=== PATIENT | male | born 1995 | race Two or more races ===

== ENCOUNTER 2017-03-09 08:42 | Emergency (ER) | payer SELFPAY ==
[~2017-03-09] VITALS: Ht 175.3 cm; Wt 127.0 kg
[2017-03-09] MEDS ORDERED: IV NORMAL SALINE 1000ML BAG 1,000 ML IV SCH (09:57)
[2017-03-09] MEDS ORDERED: ONDANSETRON PF 4 MG/2 ML VIAL. IV ONE (10:00)
[2017-03-09 10:10] LABS: BASO # 0.1 x10^3/uL (0.0-0.2); BASO % 1 % (0-3); EOS % 13 % (0-3); HEMOGLOBIN 15.8 g/dL (13.0-17.5); LYMPH # 2.1 x10^3/uL (1.0-4.8); LYMPH % 26 % (24-48); MEAN CORPUSCULAR HEMOGLOBIN 26 pg (25-35); MEAN CORPUSCULAR HGB CONC 34 g/dL (31-37); MEAN CORPUSCULAR VOLUME 77 fL (79-100); MONO % 6 % (0-9); NEUT % 54 % (31-73); PLATELET COUNT 262 x10^3/uL (140-400); RED BLOOD COUNT 5.97 x10^6/uL (4.30-5.70); RED CELL DISTRIBUTION WIDTH 13.9 % (11.5-14.5); WHITE BLOOD COUNT 8.2 x10^3/uL (4.0-11.0)
[2017-03-09 10:44] LABS: ALBUMIN/GLOBULIN RATIO 0.9 (1.0-1.7); GFR 94.3; POTASSIUM 3.9 mmol/L (3.5-5.1); TOTAL BILIRUBIN 0.5 mg/dL (0.2-1.0); TOTAL PROTEIN 8.3 g/dL (6.4-8.2)
[2017-03-09 10:57] LABS: INR 1.1 (0.8-1.1); PROTHROMBIN TIME PATIENT 13.7 SEC (11.7-14.0)
[2017-03-09 11:11] LABS: BILIRUBIN,URINE NEGATIVE (NEG); GLUCOSE,URINE NEGATIVE (NEG); NITRITE,URINE NEGATIVE (NEG); PROTEIN,URINE NEGATIVE (NEG-TRACE); UROBILINOGEN,URINE 0.2 mg/dL (0.2 mg/dL)
[2017-03-09 11:23] LABS: BACTERIA,URINE FEW /HPF (0-FEW); RBC,URINE 0 /HPF (0-2); SQUAMOUS EPITHELIAL CELL,UR FEW /LPF; WBC,URINE OCC /HPF (0-4)
[2017-03-09 12:07] VITALS: BP 125/55
--- NOTE | 2017-03-09 13:10 | PHYS DOC ---
Past Medical History Past Medical History: No Pertinent History Additional Past Medical Histor: pneumonia Past Surgical History: No Surgical History Alcohol Use: None Drug Use: None Adult General Chief Complaint Chief Complaint: HEMATEMESIS/VOMITING BLOOD [place] [employer] [facility] HPI 22-year-old male with history of morbid obesity from [facility] now presents to the emergency department complaining of vomiting once and suspecting there might be a small amount of blood in his vomitus. She does not have a history of abdominal problems or chronic gastritis. He states he does not drink alcohol at all. Patient is on no medicines. He gets some nausea this morning and retched and vomited one time results of which were as described. No devaughn blood patient suspected trace of blood present. He denies black or bloody stool. He has no history of coagulopathy and does not take any anticoagulants area patient has no dizziness near syncope or syncope. Denies abdominal pain. He is currently completely asymptomatic with no nausea at all. Patient has never been told he has any medical problems Review of Systems Review of Systems Constitutional: Denies fever or chills [] Eyes: Denies change in visual acuity, redness, or eye pain [] HENT: Denies nasal congestion or sore throat [] Respiratory: Denies cough or shortness of breath [] Cardiovascular: No additional information not addressed in HPI [] GI: Denies abdominal pain, nausea, vomiting, bloody stools or diarrhea [] : Denies dysuria or hematuria [] Musculoskeletal: Denies back pain or joint pain [] Integument: Denies rash or skin lesions [] Neurologic: Denies headache, focal weakness or sensory changes [] Endocrine: Denies polyuria or polydipsia [] Current Medications Current Medications Current Medications Medications (Trade) Dose Ordered Sig/Charla Start Time Stop Time Status Last Admin Dose Admin Ondansetron HCl (Zofran) 4 mg 1X ONCE 03/09/17 10:00 03/09/17 10:01 DC 03/09/17 10:12 4 MG Sodium Chloride 1,000 ml @ 999 mls/hr Q1H1M 03/09/17 09:57 03/09/17 10:57 DC 03/09/17 10:12 999 MLS/HR Allergies Allergies Allergies Coded Allergies Type Severity Reaction Last Updated Verified No Known Drug Allergies 12/13/15 No Physical Exam Physical Exam Well-appearing morbidly obese crenation male in no acute distress. No pallor of conjunctiva. Nontender abdomen specifically no epigastric tenderness. Clear lungs regular rhythm no tachycardia completely benign extended abdominal exam with no CVA tenderness. Normal extremities Constitutional: Well developed, well nourished, no acute distress, non-toxic appearance. [] HENT: Normocephalic, atraumatic, bilateral external ears normal, oropharynx moist, no oral exudates, nose normal. [] Eyes: PERRLA, EOMI, conjunctiva normal, no discharge. [] Neck: Normal range of motion, no tenderness, supple, no stridor. [] Cardiovascular:Heart rate regular rhythm, no murmur [] Lungs & Thorax: Bilateral breath sounds clear to auscultation [] Abdomen: Bowel sounds normal, soft, no tenderness, no masses, no pulsatile masses. [] Skin: Warm, dry, no erythema, no rash. [] Back: No tenderness, no CVA tenderness. [] Extremities: No tenderness, no cyanosis, no clubbing, ROM intact, no edema. [] Neurologic: Alert and oriented X 3, normal motor function, normal sensory function, no focal deficits noted. [] Psychologic: Affect normal, judgement normal, mood normal. [] Current Patient Data Vital Signs Vital Signs Date Time Temp Pulse Resp B/P (MAP) Pulse Ox O2 Delivery O2 Flow Rate FiO2 03/09/17 12:07 70 16 125/55 (78) 98 Room Air 03/09/17 09:12 98.4 98.4 Lab Values Laboratory Tests Test 03/09/17 09:55 03/09/17 10:29 03/09/17 11:00 White Blood Count 8.2 x10^3/uL (4.0-11.0) Red Blood Count 5.97 x10^6/uL (4.30-5.70) H Hemoglobin 15.8 g/dL (13.0-17.5) Hematocrit 46.0 % (39.0-53.0) Mean Corpuscular Volume 77 fL (79-100) L Mean Corpuscular Hemoglobin 26 pg (25-35) Mean Corpuscular Hemoglobin Concent 34 g/dL (31-37) Red Cell Distribution Width 13.9 % (11.5-14.5) Platelet Count 262 x10^3/uL (140-400) Neutrophils (%) (Auto) 54 % (31-73) Lymphocytes (%) (Auto) 26 % (24-48) Monocytes (%) (Auto) 6 % (0-9) Eosinophils (%) (Auto) 13 % (0-3) H Basophils (%) (Auto) 1 % (0-3) Neutrophils # (Auto) 4.4 x10^3uL (1.8-7.7) Lymphocytes # (Auto) 2.1 x10^3/uL (1.0-4.8) Monocytes # (Auto) 0.5 x10^3/uL (0.0-1.1) Eosinophils # (Auto) 1.1 x10^3/uL (0.0-0.7) H Basophils # (Auto) 0.1 x10^3/uL (0.0-0.2) Sodium Level 139 mmol/L (136-145) Potassium Level 3.9 mmol/L (3.5-5.1) Chloride Level 102 mmol/L (98-107) Carbon Dioxide Level 27 mmol/L (21-32) Anion Gap 10 (6-14) Blood Urea Nitrogen 12 mg/dL (8-26) Creatinine 1.0 mg/dL (0.7-1.3) Estimated GFR (Cockcroft-Gault) 94.3 BUN/Creatinine Ratio 12 (6-20) Glucose Level 95 mg/dL (70-99) Calcium Level 9.0 mg/dL (8.5-10.1) Total Bilirubin 0.5 mg/dL (0.2-1.0) Aspartate Amino Transferase (AST) 29 U/L (15-37) Alanine Aminotransferase (ALT) 41 U/L (16-63) Alkaline Phosphatase 126 U/L (46-116) H Total Protein 8.3 g/dL (6.4-8.2) H Albumin 4.0 g/dL (3.4-5.0) Albumin/Globulin Ratio 0.9 (1.0-1.7) L Lipase 99 U/L (73-393) Prothrombin Time 13.7 SEC (11.7-14.0) Prothrombin Time INR 1.1 (0.8-1.1) PTT 29 SEC (24-38) Urine Color Yellow Urine Clarity Clear Urine pH 6.0 Urine Specific [place] >=1.030 Urine Protein Negative mg/dL (NEG-TRACE) Urine Glucose (UA) Negative mg/dL (NEG) Urine Ketones (Stick) Negative mg/dL (NEG) Urine Blood Negative (NEG) Urine Nitrite Negative (NEG) Urine Bilirubin Negative (NEG) Urine Urobilinogen Dipstick 0.2 mg/dL (0.2 mg/dL) Urine Leukocyte Esterase Negative (NEG) Urine RBC 0 /HPF (0-2) Urine WBC Occ /HPF (0-4) Urine Squamous Epithelial Cells Few /LPF Urine Bacteria Few /HPF (0-FEW) Urine Mucus Mod /LPF Laboratory Tests 03/09/17 09:55 Laboratory Tests 03/09/17 09:55 EKG EKG [] Radiology/Procedures Radiology/Procedures [] Course & Med Decision Making Course & Med Decision Making Pertinent Labs and Imaging studies reviewed. (See chart for details) Patient status post single episode of vomiting. He now feels well. Question of small amount of blood in vomitus however patient has no history of coagulopathy or anticoagulation. He is refusing a rectal exam with nurse present. Explained to patient this was necessary for his workup as supportive information to suggest or deny that he may have gastritis or maybe evolving peptic ulcer disease. Despite excellent oxygenation patient continues to refuse rectal exam. Hemoglobin unremarkable, vital signs stable. Workup benign. Patient continues to refuse rectal exam and he is aware his workup is incomplete without it. He will sign out AGAINST MEDICAL ADVICE and follow-up with his doctor for reevaluation and further workup and treatment as needed. [] Dragon Disclaimer Dragon Disclaimer This electronic medical record was generated, in whole or in part, using a voice recognition dictation system. Departure Departure Impression: Primary Impression: Emesis Disposition: 07 AGAINST MEDICAL ADVICE Condition: STABLE Referrals: NO PCP (PCP) Additional Instructions: All up with your doctor as soon as possible for reevaluation and further workup as needed HERNANDEZ KELLY MD Mar 09, 2017 13:10
== END 2017-03-09 14:00 | disposition left against medical advice (07) ==
LOC: ER 08:42
DX: R11.2 Nausea with vomiting, unspecified (principal); E66.01 Morbid (severe) obesity due to excess calories; Z68.41 Body mass index [BMI] 40.0-44.9, adult; Z87.01 Personal history of pneumonia (recurrent); Z53.21 Procedure and treatment not carried out due to patient leaving prior to being seen by health care provider
CPT/HCPCS: 36415; 80053; 81001; 83690; 85025; 85610; 85730; 96361; 96374; 99285; J2405; J7030

== ENCOUNTER 2018-06-17 22:13 | Emergency (ER) | payer SELFPAY ==
[~2018-06-17] VITALS: Ht 182.9 cm; Wt 127.0 kg
[2018-06-17 23:03] LABS: BASO # 0.1 x10^3/uL (0.0-0.2); BASO % 1 % (0-3); EOS # 0.3 x10^3/uL (0.0-0.7); EOS % 2 % (0-3); HEMATOCRIT 51.2 % (39.0-53.0); HEMOGLOBIN 17.4 g/dL (13.0-17.5); LYMPH # 2.4 x10^3/uL (1.0-4.8); LYMPH % 17 % (24-48); MEAN CORPUSCULAR HEMOGLOBIN 27 pg (25-35); MEAN CORPUSCULAR HGB CONC 34 g/dL (31-37); MEAN CORPUSCULAR VOLUME 79 fL (79-100); MONO # 0.8 x10^3/uL (0.0-1.1); MONO % 6 % (0-9); NEUT # 10.4 x10^3uL (1.8-7.7); NEUT % 74 % (31-73); PLATELET COUNT 325 x10^3/uL (140-400); RED BLOOD COUNT 6.47 x10^6/uL (4.30-5.70); RED CELL DISTRIBUTION WIDTH 13.8 % (11.5-14.5)
[2018-06-17 23:08] LABS: CALCIUM 9.9 mg/dL (8.5-10.1); GFR 93.4; POTASSIUM 3.8 mmol/L (3.5-5.1)
[2018-06-17 23:14] LABS: ALBUMIN 4.1 g/dL (3.4-5.0); ALBUMIN/GLOBULIN RATIO 0.8 (1.0-1.7); TOTAL BILIRUBIN 0.5 mg/dL (0.2-1.0); TOTAL PROTEIN 9.4 g/dL (6.4-8.2)
[2018-06-17 23:24] LABS: CREATINE KINASE 202 U/L (39-308)
[2018-06-17] MEDS ORDERED: IV NORMAL SALINE 1000ML BAG 1,000 ML IV ONE (23:30)
--- NOTE | 2018-06-17 23:37 | PHYS DOC ---
Past Medical History Past Medical History: No Pertinent History Additional Past Medical Histor: pneumonia Past Surgical History: No Surgical History Alcohol Use: None Drug Use: None Adult General Chief Complaint Chief Complaint: CHEST PAIN HPI HPI 23-year-old male presents to ER via POV for complaints of sudden onset of left- sided chest pain radiating into his back 2 hours prior to arrival. Patient's uncle at bedside is translating as patient is preferring not to use translation phone and he speaks primarily Chukese. Patient reports he was resting when pain started and pain has been constant. Pt denies increased pain w/movement or breathing. Pt denies fever, SOA, cough, abd pain, N/V, or palpitations. He denies swelling in extremities. He denies any recent travel or illness. Pt's brother denies any family hx of CAD/MIs. Pt took 800mg Ibuprofen FREEZER ASSISTANT to ER. He denies smoking, etoh, or illicit drug use. Review of Systems Review of Systems Constitutional: Denies fever or chills [] Eyes: Denies change in visual acuity, redness, or eye pain [] HENT: Denies nasal congestion or sore throat [] Respiratory: Denies cough or shortness of breath [] Cardiovascular: Reports lt side CP radiating into lt side upper back GI: Denies abdominal pain, nausea, vomiting, bloody stools or diarrhea [] : Denies dysuria or hematuria [] Musculoskeletal: Denies neck pain or joint pain [] Integument: Denies rash, swelling or skin lesions [] Neurologic: Denies headache, focal weakness or sensory changes. Denies dizziness /lightheadedness All other systems were reviewed and found to be within normal limits, except as documented in this note. Current Medications Current Medications Current Medications Medications (Trade) Dose Ordered Sig/Charla Start Time Stop Time Status Last Admin Dose Admin Ketorolac Tromethamine (Toradol 15mg Vial) 15 mg 1X ONCE 06/17/18 23:45 06/17/18 23:45 DC Morphine Sulfate (Morphine Sulfate) 4 mg 1X ONCE 06/17/18 23:55 06/17/18 23:56 DC 06/18/18 00:03 4 MG Sodium Chloride 1,000 ml @ 1,000 mls/hr 1X ONCE 06/17/18 23:30 06/18/18 00:29 DC 06/17/18 23:30 1,000 MLS/HR Allergies Allergies Allergies Coded Allergies Type Severity Reaction Last Updated Verified No Known Drug Allergies 12/13/15 No Physical Exam Physical Exam Constitutional: Well developed, well nourished, mild distress on initial exam- flushes facial skin tone w/clammy skin, non-toxic appearance. [] HENT: Normocephalic, atraumatic, bilateral ears normal, oropharynx moist, no oral exudates, nose normal. [] Eyes: PERRLA, conjunctiva normal, no discharge. [] Neck: Normal range of motion, no tenderness, supple, no stridor. [] Cardiovascular: Tachycardic heart rate regular rhythm, no murmur [] Lungs & Thorax: Bilateral breath sounds clear to auscultation. Resp. equal/ nonlabored Abdomen: Bowel sounds normal, soft/obese, no tenderness/rigidity, no masses, no pulsatile masses. [] Skin: Warm, clammy, no erythema, no rash. [] Back: No tenderness, no CVA tenderness. [] Extremities: No tenderness, no cyanosis, no clubbing, ROM intact, no edema. Bilat. radial 2+ equal. Dorsal pedis/pedal pulse equal bilat. 2+. Calf size symmetric bilat. with no calf tenderness Neurologic: Alert and oriented X 3, normal motor function, normal sensory function, no focal deficits noted. [] Psychologic: Affect normal, judgement normal, mood normal. [] Current Patient Data Vital Signs Vital Signs Date Time Temp Pulse Resp B/P (MAP) Pulse Ox O2 Delivery O2 Flow Rate FiO2 06/18/18 01:31 73 18 143/77 (99) 95 Room Air 06/17/18 22:15 98.6 98.6 Lab Values Laboratory Tests Test 06/17/18 22:50 White Blood Count 14.0 x10^3/uL (4.0-11.0) H Red Blood Count 6.47 x10^6/uL (4.30-5.70) H Hemoglobin 17.4 g/dL (13.0-17.5) Hematocrit 51.2 % (39.0-53.0) Mean Corpuscular Volume 79 fL (79-100) Mean Corpuscular Hemoglobin 27 pg (25-35) Mean Corpuscular Hemoglobin Concent 34 g/dL (31-37) Red Cell Distribution Width 13.8 % (11.5-14.5) Platelet Count 325 x10^3/uL (140-400) Neutrophils (%) (Auto) 74 % (31-73) H Lymphocytes (%) (Auto) 17 % (24-48) L Monocytes (%) (Auto) 6 % (0-9) Eosinophils (%) (Auto) 2 % (0-3) Basophils (%) (Auto) 1 % (0-3) Neutrophils # (Auto) 10.4 x10^3uL (1.8-7.7) H Lymphocytes # (Auto) 2.4 x10^3/uL (1.0-4.8) Monocytes # (Auto) 0.8 x10^3/uL (0.0-1.1) Eosinophils # (Auto) 0.3 x10^3/uL (0.0-0.7) Basophils # (Auto) 0.1 x10^3/uL (0.0-0.2) D-Dimer (Cheryl) < 0.27 ug/mlFEU Sodium Level 137 mmol/L (136-145) Potassium Level 3.8 mmol/L (3.5-5.1) Chloride Level 100 mmol/L (98-107) Carbon Dioxide Level 25 mmol/L (21-32) Anion Gap 12 (6-14) Blood Urea Nitrogen 13 mg/dL (8-26) Creatinine 1.0 mg/dL (0.7-1.3) Estimated GFR (Cockcroft-Gault) 93.4 BUN/Creatinine Ratio 13 (6-20) Glucose Level 95 mg/dL (70-99) Calcium Level 9.9 mg/dL (8.5-10.1) Total Bilirubin 0.5 mg/dL (0.2-1.0) Aspartate Amino Transferase (AST) 23 U/L (15-37) Alanine Aminotransferase (ALT) 48 U/L (16-63) Alkaline Phosphatase 115 U/L (46-116) Creatine Kinase 202 U/L (39-308) Creatine Kinase MB (Mass) 1.4 ng/mL (0.0-3.6) Creatine Kinase MB Relative Index 0.7 % (0-4) Troponin I Quantitative < 0.017 ng/mL (0.000-0.055) [id number]-Type Natriuretic Peptide < 5 pg/mL (0-124) Total Protein 9.4 g/dL (6.4-8.2) H Albumin 4.1 g/dL (3.4-5.0) Albumin/Globulin Ratio 0.8 (1.0-1.7) L Lipase 90 U/L (73-393) Laboratory Tests 06/17/18 22:50 Laboratory Tests 06/17/18 22:50 EKG EKG EKG obtained 06/17/18 at [address] Trotter Sinus rhythm Rate 100 No STEMI Radiology/Procedures Radiology/Procedures CXR: no acute findings Course & Med Decision Making Course & Med Decision Making Pertinent Labs and Imaging studies reviewed. (See chart for details) 2325: On re-eval pt is in no visible distress and skin is not clammy as he was at time of arrival. He appears less anxious then at time of initial exam with equal/nonlabored resp. His BP 131/63 HR 93 RR 18 O2 sat 99% on RA. Test results were discussed with pt's brother translating again to pt. Will give pt pain meds /IV fld bolus and continue to monitor. DDimer 0.27; EKG with no STEMI/acute ST elevation and troponin <0.017; WBCs 14.0 no bands. Pt continues to report pain to be same in left side chest denying any SOA, abd pain, or nausea. He reports pain does continue to radiate into lt side upper back. Pt's case was discussed with Dr. Trotter who viewed chest xray- no obvious acute findings. 0005: On re-eval. following IV Morphine pt reports no change in lt side CP. Discussed plans to recheck troponin 3 hrs after initial labs to further r/o ACS - pt and family agreeable with this plan. 0050: Re-eval and pt reports CP has subsided. He is resting on ER cart- in no distress/nontoxic in appearance. VS signs stable with BP 160/76 HR 88 RR 18 O2 sat 98% RA- he remains on color television console monitor with no ischemic changes. He denies any sxs at this time. Family at bedside. Discussed pt's case with Dr. Trotter who will assume pt's care with 3 hr troponin pending. 02:15: Repeat trop/EKG negative for acute changes. Patient discharged to home. Advised to return to the ER for any new or worsening symptoms. Dragon Disclaimer Dragon Disclaimer This electronic medical record was generated, in whole or in part, using a voice recognition dictation system. Departure Departure Disposition: 01 HOME, SELF-CARE Condition: GOOD Referrals: NO PCP (PCP) BETHANIE YANG APRN Jun 17, 2018 23:37 CHESTER TROTTER DO Jun 18, 2018 02:17
[2018-06-17] MEDS ORDERED: KETOROLAC 15 MG/ML VIAL. IV ONE (23:45)
[2018-06-17] MEDS ORDERED: MORPHINE SULFATE 4 MG/ML VIAL. IV ONE (23:55)
[2018-06-18 01:31] VITALS: BP 143/77
--- NOTE | 2018-06-18 06:35 | EKG ---
[facility] [address] [place] [address] Test Date: 2018-06-17 Test Time: 22:40:55 Pat Name: SAHIL PRITCHETT Department: Room: Gender: M Hydrological Technical Officer: : 1995 Requested By: BETHANIE YANG Order Number: [id number] Reading MD: Daniel Multani Measurements Intervals [place] Rate: 100 P: 28 W[place]: 164 QRS: 48 QRSD: 90 T: 15 QT: 334 QTc: 434 Interpretive Statements SINUS RHYTHM NO SPECIFIC ECG ABNORMALITIES Electronically Signed On 06-18-2018 9:16:55 NUTRITION COUNSELOR by Daniel Multani
--- NOTE | 2018-06-18 06:43 | EKG ---
[facility] [address] [place] [address] Test Date: 2018-06-18 Test Time: 02:07:38 Pat Name: SAHIL PRITCHETT Department: Room: Gender: M Curb Attendant: : 1995 Requested By: CHESTER CHENG Order Number: [id number] Reading MD: Daniel Multani Measurements Intervals [place] Rate: 78 P: 0 MS: 176 QRS: 33 QRSD: 100 T: 4 QT: 362 QTc: 416 Interpretive Statements SINUS RHYTHM NON SPECIFIC ST-T ABNORMALITY (ELEVATION) Electronically Signed On 06-18-2018 9:17:32 LPN MEDICAL ASSISTANT by Daniel Multani
--- NOTE | 2018-06-18 07:49 | RAD ---
Chest, 2 views, 06/17/2018: HISTORY: Chest pain Comparison is made to a study from 10/14/2015. The heart size and pulmonary vascularity are normal. No pulmonary infiltrate is seen. There is no evidence of pleural fluid. IMPRESSION: No acute cardiopulmonary abnormality is detected. Electronically signed by: Calvin Mcghee MD (06/18/2018 7:46 AM) [facility]
== END 2018-06-18 02:25 | disposition home or self-care (01) ==
LOC: ER 22:13
DX: R07.89 Other chest pain (principal); M54.6 Pain in thoracic spine; R00.0 Tachycardia, unspecified
CPT/HCPCS: 36415; 71046; 80053; 82553; 83690; 83880; 84484; 85025; 85379; 93005; 96374; 99284; J2270; J7030

== ENCOUNTER 2018-06-18 20:21 | Observation (INO) | payer SELFPAY ==
[~2018-06-18] VITALS: Ht 172.7 cm; Wt 124.3 kg
--- NOTE | 2018-06-18 20:33 | PHYS DOC ---
Past Medical History Past Medical History: No Pertinent History Additional Past Medical Histor: pneumonia Past Surgical History: No Surgical History Alcohol Use: None Drug Use: Marijuana Adult General Chief Complaint Chief Complaint: CHEST PAIN-NON CARDIAC NATURE HPI HPI 23-year-old male turns to ER via POV with complaints of left side chest pain radiating into his left upper back. Patient was evaluated in the ER by this provider last night and he presented with same symptoms. His uncle who is translating is at bedside states pain per pt has worsened . He reports patient took ibuprofen at 5 PM with no relief in symptoms. Review of Systems Review of Systems Constitutional: Denies fever or chills [] Eyes: Denies change in visual acuity, redness, or eye pain [] HENT: Denies nasal congestion or sore throat [] Respiratory: Denies cough or shortness of breath [] Cardiovascular: Reports lt side CP into lt side upper back- pain is worse with deep breath. Some increased pain with palp. lt upper chest GI: Denies abdominal pain, nausea, vomiting, bloody stools or diarrhea [] : Denies dysuria or hematuria [] Musculoskeletal: Denies neck pain or joint pain [] Integument: Denies rash, swelling or skin lesions [] Neurologic: Denies headache, focal weakness or sensory changes [] All other systems were reviewed and found to be within normal limits, except as documented in this note. Current Medications Current Medications Current Medications Medications (Trade) Dose Ordered Sig/Charla Start Time Stop Time Status Last Admin Dose Admin Info (CONTRAST GIVEN -- Rx MONITORING) 1 each PRN DAILY PRN 06/18/18 21:00 06/20/18 20:59 Iohexol (Omnipaque 300 Mg/ml) 75 ml 1X ONCE 06/18/18 20:45 06/18/18 20:46 DC 06/18/18 20:45 75 ML Morphine Sulfate (Morphine Sulfate) 4 mg 1X ONCE 06/18/18 20:45 06/18/18 20:46 DC 06/18/18 21:34 4 MG Sodium Chloride 1,000 ml @ 1,000 mls/hr 1X ONCE 06/18/18 20:45 06/18/18 21:44 DC 06/18/18 21:34 1,000 MLS/HR Allergies Allergies Allergies Coded Allergies Type Severity Reaction Last Updated Verified No Known Drug Allergies 12/13/15 No Physical Exam Physical Exam Constitutional: Well developed, well nourished, no acute distress, non-toxic appearance. [] HENT: Normocephalic, atraumatic, oropharynx moist, no oral exudates, nose normal. [] Eyes: PERRLA, EOMI, conjunctiva normal, no discharge. [] Neck: Normal range of motion, no tenderness, supple, no stridor. [] Cardiovascular: Heart rate regular rhythm, no murmur [] Lungs & Thorax: Bilateral breath sounds clear to auscultation [] Abdomen: Bowel sounds normal, soft, no tenderness, no masses, no pulsatile masses. [] Skin: Warm, dry, no erythema, no rash. [] Back: No tenderness, no CVA tenderness. [] Extremities: No tenderness, no cyanosis, no clubbing, ROM intact, no edema. [] Neurologic: Alert and oriented X 3, normal motor function, normal sensory function, no focal deficits noted. [] Psychologic: Affect normal, judgement normal, mood normal. [] Current Patient Data Vital Signs Vital Signs Date Time Temp Pulse Resp B/P (MAP) Pulse Ox O2 Delivery O2 Flow Rate FiO2 06/18/18 21:38 79 14 155/84 (107) 98 Room Air 06/18/18 20:22 98.4 98.4 Lab Values Laboratory Tests Test 06/18/18 21:35 White Blood Count 11.4 x10^3/uL (4.0-11.0) H Red Blood Count 5.94 x10^6/uL (4.30-5.70) H Hemoglobin 15.6 g/dL (13.0-17.5) Hematocrit 47.5 % (39.0-53.0) Mean Corpuscular Volume 80 fL (79-100) Mean Corpuscular Hemoglobin 26 pg (25-35) Mean Corpuscular Hemoglobin Concent 33 g/dL (31-37) Red Cell Distribution Width 14.1 % (11.5-14.5) Platelet Count 294 x10^3/uL (140-400) Neutrophils (%) (Auto) 65 % (31-73) Lymphocytes (%) (Auto) 23 % (24-48) L Monocytes (%) (Auto) 6 % (0-9) Eosinophils (%) (Auto) 5 % (0-3) H Basophils (%) (Auto) 1 % (0-3) Neutrophils # (Auto) 7.4 x10^3uL (1.8-7.7) Lymphocytes # (Auto) 2.6 x10^3/uL (1.0-4.8) Monocytes # (Auto) 0.7 x10^3/uL (0.0-1.1) Eosinophils # (Auto) 0.6 x10^3/uL (0.0-0.7) Basophils # (Auto) 0.1 x10^3/uL (0.0-0.2) Sodium Level 139 mmol/L (136-145) Potassium Level 3.7 mmol/L (3.5-5.1) Chloride Level 101 mmol/L (98-107) Carbon Dioxide Level 27 mmol/L (21-32) Anion Gap 11 (6-14) Blood Urea Nitrogen 13 mg/dL (8-26) Creatinine 0.9 mg/dL (0.7-1.3) Estimated GFR (Cockcroft-Gault) 105.5 BUN/Creatinine Ratio 14 (6-20) Glucose Level 81 mg/dL (70-99) Calcium Level 9.3 mg/dL (8.5-10.1) Total Bilirubin 0.6 mg/dL (0.2-1.0) Aspartate Amino Transferase (AST) 26 U/L (15-37) Alanine Aminotransferase (ALT) 47 U/L (16-63) Alkaline Phosphatase 101 U/L (46-116) Troponin I Quantitative < 0.017 ng/mL (0.000-0.055) Total Protein 8.5 g/dL (6.4-8.2) H Albumin 3.7 g/dL (3.4-5.0) Albumin/Globulin Ratio 0.8 (1.0-1.7) L Laboratory Tests 06/18/18 21:35 Laboratory Tests 06/18/18 21:35 EKG EKG EKG obtained 06/18/[address] Trotter Sinus rhythm Nonspecific ST- T wave abnorm. Rate 86 No STEMI Similar to comparison with EKGs from 06/17/18 Radiology/Procedures Radiology/Procedures PROCEDURE: CT CHEST W/CONTRAST CT chest with contrast dated 06/18/2018. No comparison available. Clinical data indication: Left-sided chest pain. TECHNIQUE: Contiguous axial imaging of the chest performed following the intravenous administration of 75 cc Omnipaque 300. One or more of the following individualized dose reduction techniques were utilized for this examination: 1. Automated exposure control 2. Adjustment of the mA and/or kV according to patient size 3. Use of iterative reconstruction technique. FINDINGS: Heart size within normal limits. No pericardial effusion. No mediastinal, hilar or axillary lymphadenopathy. There is some increased density in the anterior superior mediastinum that likely represents residual thymic tissue. Central airways are patent. Lungs are clear. No consolidation or pleural effusion. No pneumothorax. Images of upper abdomen show diffuse low-density of the liver, compatible with fatty infiltration. No apparent mass. Biliary tree normal in caliber. Bone windows show no acute findings. IMPRESSION: 1. No acute abnormality of chest. Clear lungs. 2. Mild fatty infiltration of the liver. Electronically signed by: Leif Mendoza MD (06/18/2018 9:10 PM) [facility] DICTATED and SIGNED BY: LEIF MENDOZA MD DATE: 06/18/182106 Course & Med Decision Making Course & Med Decision Making Pertinent Labs and Imaging studies reviewed. (See chart for details) 2300: There was delay with lab in getting pt's lab results- EKG similar to those obtained during last night's ER visit and troponin again was <0.017. Chest CT with no acute findings. Results were discussed with pt and his uncle- they have concerns of ongoing pain and are wanting admit to hosp. as discussion was had with outpt care with PCP. At this time pt is unemployed and has no PCP. Discussed providing pain med and Rx for steroids- Uncle and pt both are wanting him admitted as pt feels pain is worse and he has had no improvement with Ibuprofen or Morphine. During this discussion pt is in no visible distress/ nontoxic in appearance. Further discussed labs from today's ER visit and last night's along with xray/CT results with no acute findings. Both are not wanting pt to be discharge and admitted for further monitoring w/Uncle reporting pt's pain was worse today. Will admit to hospitalist and have cardiology see pt tomorrow. At time of admit pt was in no distress with equal/nonlabored resp. Pt's case and plan of care was discussed with Dr. Trotter. Chad Disclaimer Chad Disclaimer This electronic medical record was generated, in whole or in part, using a voice recognition dictation system. Departure Departure Impression: Primary Impression: Chest pain Disposition: ADMITTED INPATIENT Admitting Physician: Xie. Cates Condition: STABLE Referrals: NO PCP (PCP) BETHANIE YANG APRN Jun 18, 2018 20:33
[2018-06-18] MEDS ORDERED: IOHEXOL 300 MG/ML 100ML VIAL. IV ONE (20:45)
[2018-06-18] MEDS ORDERED: MORPHINE SULFATE 4 MG/ML VIAL. IV ONE (20:45)
[2018-06-18] MEDS ORDERED: IV NORMAL SALINE 1000ML BAG 1,000 ML IV ONE (20:45)
[2018-06-18] MEDS ORDERED: CONTRAST GIVEN. MC PRN (21:00)
--- NOTE | 2018-06-18 21:14 | RAD ---
CT chest with contrast dated 06/18/2018. No comparison available. Clinical data indication: Left-sided chest pain. TECHNIQUE: Contiguous axial imaging of the chest performed following the intravenous administration of 75 cc Omnipaque 300. One or more of the following individualized dose reduction techniques were utilized for this examination: 1. Automated exposure control 2. Adjustment of the mA and/or kV according to patient size 3. Use of iterative reconstruction technique. FINDINGS: Heart size within normal limits. No pericardial effusion. No mediastinal, hilar or axillary lymphadenopathy. There is some increased density in the anterior superior mediastinum that likely represents residual thymic tissue. Central airways are patent. Lungs are clear. No consolidation or pleural effusion. No pneumothorax. Images of upper abdomen show diffuse low-density of the liver, compatible with fatty infiltration. No apparent mass. Biliary tree normal in caliber. Bone windows show no acute findings. IMPRESSION: 1. No acute abnormality of chest. Clear lungs. 2. Mild fatty infiltration of the liver. Electronically signed by: Leif Mendoza MD (06/18/2018 9:10 PM) [facility]
[2018-06-18 22:33] LABS: BASO # 0.1 x10^3/uL (0.0-0.2); BASO % 1 % (0-3); EOS # 0.6 x10^3/uL (0.0-0.7); EOS % 5 % (0-3); HEMATOCRIT 47.5 % (39.0-53.0); HEMOGLOBIN 15.6 g/dL (13.0-17.5); LYMPH # 2.6 x10^3/uL (1.0-4.8); LYMPH % 23 % (24-48); MEAN CORPUSCULAR HEMOGLOBIN 26 pg (25-35); MEAN CORPUSCULAR HGB CONC 33 g/dL (31-37); MEAN CORPUSCULAR VOLUME 80 fL (79-100); MONO # 0.7 x10^3/uL (0.0-1.1); MONO % 6 % (0-9); NEUT # 7.4 x10^3uL (1.8-7.7); NEUT % 65 % (31-73); PLATELET COUNT 294 x10^3/uL (140-400); RED BLOOD COUNT 5.94 x10^6/uL (4.30-5.70); RED CELL DISTRIBUTION WIDTH 14.1 % (11.5-14.5); WHITE BLOOD COUNT 11.4 x10^3/uL (4.0-11.0)
[2018-06-18 22:43] LABS: CALCIUM 9.3 mg/dL (8.5-10.1); CREATININE 0.9 mg/dL (0.7-1.3); GFR 105.5; POTASSIUM 3.7 mmol/L (3.5-5.1)
[2018-06-18 22:49] LABS: ALBUMIN 3.7 g/dL (3.4-5.0); ALBUMIN/GLOBULIN RATIO 0.8 (1.0-1.7); TOTAL BILIRUBIN 0.6 mg/dL (0.2-1.0); TOTAL PROTEIN 8.5 g/dL (6.4-8.2)
[2018-06-19] MEDS ORDERED: MORPHINE SULFATE 4 MG/ML VIAL. IV PRN (00:30)
[2018-06-19] MEDS ORDERED: ACETAMINOPHEN 325 MG TABLET. PO PRN (00:30)
[2018-06-19 00:45] VITALS: BP 137/77
[2018-06-19 01:00] VITALS: BP 134/79
[2018-06-19 01:15] VITALS: BP 155/81
[2018-06-19 01:30] VITALS: BP 154/71
[2018-06-19 03:00] VITALS: BP 137/57
--- NOTE | 2018-06-19 03:36 | EKG ---
[facility] [address] [place] [address] Test Date: 2018-06-18 Test Time: 20:29:28 Pat Name: SAHIL PRITCHETT Department: Room: 103 1 Gender: M Marketing And Development Coordinator: : 1995 Requested By: BETHANIE YANG Order Number: [id number] Reading MD: Sinan Field MD Measurements Intervals [place] Rate: 85 P: 0 NV: 166 QRS: 47 QRSD: 96 T: 5 QT: 348 QTc: 419 Interpretive Statements SINUS RHYTHM Electronically Signed On 06-19-2018 14:39:12 TATTOO IDENTIFIER by Sinan Field MD
--- NOTE | 2018-06-19 09:05 | PDOC2 ---
CARDIAC CONSULT DATE OF CONSULT Date of Consult DATE: 06/19/18 TIME: 08:52 REASON FOR CONSULT Reason for Consult: Chest pain REFERRING PHYSICIAN Referring Physician: Noe SOURCE Source: Chart review, Patient HISTORY OF PRESENT ILLNESS HISTORY OF PRESENT ILLNESS This is a 23 yo [place] male admitted for complains of chest pain. He was here yesterday in ED and was released after pain was relieved amd was released. His uncle is in the room who provided me with details of his symptoms as he does not speak British. He has been lifting weights. No prior injury or falls. No recent long distance travel, no leg swelling or pain or any hx of VTE nor childhood heart disease. Reports that Monday he walked for a long distance which he tolerated. He was at home then started having this stretchy discomfort to his left chest that went around his left back. No nausea or SOA. No recorded fever or chills. After getting discharged from ED his chest pain recurred again and came to ED and was given morphine and it helped. Presently he denies any chest pain but his left chest and left back pain is reproducible with palpation. Denies any recreational drugs, ETOH or tobaccoism. PAST SURGICAL HISTORY Past Surgical History: No pertinent history FAMILY HISTORY Family History noncontributory to CV SOCIAL HISTORY Smoke: No ALCOHOL: none Drugs: None Lives: with Family CURRENT MEDICATIONS CURRENT MEDICATIONS Current Medications Medications (Trade) Dose Ordered Sig/Charla Route PRN Reason Start Time Stop Time Status Last Admin Dose Admin Sodium Chloride 1,000 ml @ 1,000 mls/hr 1X ONCE IV 06/18/18 20:45 06/18/18 21:44 DC 06/18/18 21:34 Morphine Sulfate (Morphine Sulfate) 4 mg 1X ONCE IV 06/18/18 20:45 06/18/18 20:46 DC 06/18/18 21:34 Iohexol (Omnipaque 300 Mg/ml) 75 ml 1X ONCE IV 06/18/18 20:45 06/18/18 20:46 DC 06/18/18 20:45 Morphine Sulfate (Morphine Sulfate) 4 mg PRN Q4HRS PRN IV PAIN 06/19/18 00:30 06/20/18 00:29 06/19/18 01:22 ALLERGIES ALLERGIES: Coded Allergies: No Known Drug Allergies (Unverified , 12/13/15) ROS Review of System 14 point ROS evaluated with pertinent positives noted per HPI PHYSICAL EXAM General: Alert, Oriented X3, Cooperative, No acute distress HEENT: Atraumatic, Mucous membr. moist/pink Lungs: Clear to auscultation, Normal air movement Heart: Regular rate (SR), Normal S1, Normal S2, No murmurs Abdomen: Soft, No tenderness Extremities: No cyanosis, No edema Skin: No breakdown, No significant lesion Neuro: Normal speech, Sensation intact Psych/Mental Status: Mental status NL, Mood NL MUSCULOSKELETAL: Osteoarthritic changes both hands VITALS VITALS Vital Signs Date Time Temp Pulse Resp B/P (MAP) Pulse Ox O2 Delivery O2 Flow Rate FiO2 06/19/18 03:00 98.4 78 14 137/57 (83) 93 Room Air 98.4 LABS Lab: Laboratory Tests Test 06/18/18 21:35 White Blood Count 11.4 x10^3/uL (4.0-11.0) Red Blood Count 5.94 x10^6/uL (4.30-5.70) Hemoglobin 15.6 g/dL (13.0-17.5) Hematocrit 47.5 % (39.0-53.0) Mean Corpuscular Volume 80 fL (79-100) Mean Corpuscular Hemoglobin 26 pg (25-35) Mean Corpuscular Hemoglobin Concent 33 g/dL (31-37) Red Cell Distribution Width 14.1 % (11.5-14.5) Platelet Count 294 x10^3/uL (140-400) Neutrophils (%) (Auto) 65 % (31-73) Lymphocytes (%) (Auto) 23 % (24-48) Monocytes (%) (Auto) 6 % (0-9) Eosinophils (%) (Auto) 5 % (0-3) Basophils (%) (Auto) 1 % (0-3) Neutrophils # (Auto) 7.4 x10^3uL (1.8-7.7) Lymphocytes # (Auto) 2.6 x10^3/uL (1.0-4.8) Monocytes # (Auto) 0.7 x10^3/uL (0.0-1.1) Eosinophils # (Auto) 0.6 x10^3/uL (0.0-0.7) Basophils # (Auto) 0.1 x10^3/uL (0.0-0.2) Sodium Level 139 mmol/L (136-145) Potassium Level 3.7 mmol/L (3.5-5.1) Chloride Level 101 mmol/L (98-107) Carbon Dioxide Level 27 mmol/L (21-32) Anion Gap 11 (6-14) Blood Urea Nitrogen 13 mg/dL (8-26) Creatinine 0.9 mg/dL (0.7-1.3) Estimated GFR (Cockcroft-Gault) 105.5 BUN/Creatinine Ratio 14 (6-20) Glucose Level 81 mg/dL (70-99) Calcium Level 9.3 mg/dL (8.5-10.1) Total Bilirubin 0.6 mg/dL (0.2-1.0) Aspartate Amino Transf (AST/SGOT) 26 U/L (15-37) Alanine Aminotransferase (ALT/SGPT) 47 U/L (16-63) Alkaline Phosphatase 101 U/L (46-116) Troponin I Quantitative < 0.017 ng/mL (0.000-0.055) Total Protein 8.5 g/dL (6.4-8.2) Albumin 3.7 g/dL (3.4-5.0) Albumin/Globulin Ratio 0.8 (1.0-1.7) ASSESSMENT/PLAN ASSESSMENT/PLAN Atypical CP: suspect MSK. Possible SOTOMAYOR with leukocytosis Morbid obesity Recommendations 1. NSAIDS per PCP. 2. No further cardiac w/u. JOSELYN HOWARD APRN Jun 19, 2018 09:05
[2018-06-19 10:00] VITALS: BP 128/67
--- NOTE | 2018-06-19 11:17 | SSS ---
ADMIT DATE: 06/19/2018 CHIEF COMPLAINT: Chest pain. HISTORY OF PRESENT ILLNESS: The patient is a pleasant 23-year-old healthy male who presents with chest pain, rated at 7/10. He has associated anxiety. It has been occurring off and on for a couple of days, got worse today. He tried taking some ibuprofen, but that did not seem to work, really made it worse. While in the ER, there was some concern he could have occult coronary event, so he has been admitted to the ICU. We have now consulted Cardiology. They feel like this is noncardiac. We plan to discharge. PAST MEDICAL HISTORY: Pneumonia. ALLERGIES: None. FAMILY HISTORY: Benign. SOCIAL HISTORY: He does not drink, smoke or take drugs. MEDICATIONS: Reviewed. He has no home medications. REVIEW OF SYSTEMS: GENERAL: No history of weight change, weakness or fevers. SKIN: No bruising, hair changes or rashes. EYES: No blurred, double or loss of vision. NOSE AND THROAT: No history of nosebleeds, hoarseness or sore throat. HEART: No history of palpitations, chest pain or shortness of breath on exertion. LUNGS: Denies cough, hemoptysis, wheezing or shortness of breath. GASTROINTESTINAL: Denies changes in appetite, nausea, vomiting, diarrhea or constipation. GENITOURINARY: No history of frequency, urgency, hesitancy or nocturia. NEUROLOGIC: Denies history of numbness, tingling, tremor or weakness. PSYCHIATRIC: No history of panic, anxiety or depression. ENDOCRINE: No history of heat or cold intolerance, polyuria or polydipsia. EXTREMITIES: Denies muscle weakness, joint pain, pain on walking or stiffness. PHYSICAL EXAMINATION: VITAL SIGNS: Temperature afebrile, pulse 98, respirations 18, blood pressure 144/90. GENERAL: He is sleeping. He awakens. HEART: Normal S1, S2. LUNGS: Clear. ABDOMEN: Soft, positive bowel sounds. EXTREMITIES: Trace edema. SKIN: No rashes. ENDOCRINE: No thyromegaly. LYMPHATICS: No cervical nodes. HEMATOPOIETIC: No bruising. PSYCHIATRIC: He is a little anxious. LABORATORY DATA: Troponin is 0. Chest x-ray is negative. ASSESSMENT AND PLAN: Atypical chest pain, suspect gastroesophageal reflux disease. We are going to discharge the patient with close outpatient followup. DISPOSITION: Home. ACTIVITY: As tolerated. DIET: Low sodium. MEDICATIONS: Please see the MRAD. TOTAL TIME: 31 minutes. CORNELL POLLACK DO DR: JANE/cole JOB#: [id number] / [id number]
== END 2018-06-19 14:30 | disposition home or self-care (01) ==
LOC: ER 20:21 → 1 WEST ICU 23:20
PROVIDERS: ADMIT Internal Medicine; ATTEND Internal Medicine
DX: R07.89 Other chest pain (principal); F41.9 Anxiety disorder, unspecified; K76.0 Fatty (change of) liver, not elsewhere classified
CPT/HCPCS: 36415; 71260; 80053; 84484; 85025; 90471; 90756; 93005; 96374; 96376; 99284; G0378; J2270; J7030; Q9967; G0379; Q2035

== ENCOUNTER 2018-06-24 22:08 | Emergency (ER) | payer SELFPAY ==
[~2018-06-24] VITALS: Ht 177.8 cm; Wt 124.3 kg
[2018-06-24 22:32] LABS: BASO # 0.1 x10^3/uL (0.0-0.2); BASO % 1 % (0-3); EOS # 0.4 x10^3/uL (0.0-0.7); EOS % 5 % (0-3); HEMATOCRIT 43.6 % (39.0-53.0); HEMOGLOBIN 14.8 g/dL (13.0-17.5); LYMPH # 2.2 x10^3/uL (1.0-4.8); LYMPH % 23 % (24-48); MEAN CORPUSCULAR HEMOGLOBIN 27 pg (25-35); MEAN CORPUSCULAR HGB CONC 34 g/dL (31-37); MEAN CORPUSCULAR VOLUME 79 fL (79-100); MONO # 0.8 x10^3/uL (0.0-1.1); MONO % 8 % (0-9); NEUT # 6.3 x10^3uL (1.8-7.7); NEUT % 64 % (31-73); PLATELET COUNT 311 x10^3/uL (140-400); RED CELL DISTRIBUTION WIDTH 13.6 % (11.5-14.5); WHITE BLOOD COUNT 9.9 x10^3/uL (4.0-11.0)
[2018-06-24] MEDS ORDERED: ONDANSETRON PF 4 MG/2 ML VIAL. ONE (22:40)
[2018-06-24] MEDS ORDERED: fentaNYL PF VIAL 100 MCG/2 ML VIAL ONE (22:40)
[2018-06-24 22:42] LABS: CALCIUM 8.9 mg/dL (8.5-10.1); CREATININE 1.3 mg/dL (0.7-1.3); POTASSIUM 3.5 mmol/L (3.5-5.1)
[2018-06-24 22:48] LABS: ALBUMIN 3.9 g/dL (3.4-5.0); ALBUMIN/GLOBULIN RATIO 0.9 (1.0-1.7); MAGNESIUM 2.2 mg/dL (1.8-2.4); TOTAL BILIRUBIN 0.3 mg/dL (0.2-1.0); TOTAL PROTEIN 8.3 g/dL (6.4-8.2)
[2018-06-24] MEDS ORDERED: fentaNYL PF VIAL 100 MCG/2 ML VIAL IV ONE (23:00)
[2018-06-24] MEDS ORDERED: ONDANSETRON PF 4 MG/2 ML VIAL. IV ONE (23:00)
[2018-06-24] MEDS ORDERED: IV NORMAL SALINE 1000ML BAG 1,000 ML IV SCH (23:00)
[2018-06-25] MEDS ORDERED: CONTRAST GIVEN. MC PRN (00:15)
[2018-06-25] MEDS ORDERED: IOHEXOL 300 MG/ML 100ML VIAL. IV ONE (00:30)
[2018-06-25] MEDS ORDERED: fentaNYL PF VIAL 100 MCG/2 ML VIAL IV ONE (01:00)
--- NOTE | 2018-06-25 02:28 | RAD ---
Examination: CT CHEST WO CONTRAST History: CHEST PAIN. Comparison/Correlation: 06/18/2018 CT chest with contrast Findings: Axial images of the chest were obtained without contrast. Sagittal and coronal reformatted images provided. Residual thymic tissue is seen. Few nonenlarged superior mediastinal lymph nodes are present similar to prior exam. No pericardial or pleural effusion. Tracheal bronchial tree is unremarkable. Minimal atelectasis involving mid and lower lung adams noted. No definite or suspicious infiltrate. No pulmonary nodule or mass. Bony structures are unremarkable. Fatty infiltration of the liver is present. Moderate quantity of debris in the stomach. Impression: No suspicious intrathoracic process. Fatty infiltration of the liver. Electronically signed by: Natan Mendiola MD (06/25/2018 2:25 AM) [facility] [place]
[2018-06-25 03:19] VITALS: BP 124/66
[2018-06-25 03:29] LABS: BILIRUBIN,URINE NEGATIVE (NEG); CLARITY,URINE TURBID; COLOR,URINE YELLOW; NITRITE,URINE NEGATIVE (NEG); PH,URINE 6.5; PROTEIN,URINE NEGATIVE (NEG-TRACE)
[2018-06-25] MEDS ORDERED: AZIT250T PO (03:30)
[2018-06-25] MEDS ORDERED: TRAM50TA PO (03:30)
--- NOTE | 2018-06-25 03:30 | PHYS DOC ---
Past Medical History Past Medical History: Other Additional Past Medical Histor: pneumonia Past Surgical History: No Surgical History Alcohol Use: None Drug Use: Marijuana Adult General Chief Complaint Chief Complaint: CHEST PAIN-NON CARDIAC NATURE HPI HPI Patient is a 23-year-old male who presents with complaint of chest pain for the last week. Patient has been seen at this facility on numerous occasions as well as at and had been diagnosed with pneumonia previously and prescribed antibiotics but patient did not fill prescription. Patient continues to complain of pain that he rates as severe and describes a sharp and stabbing. He states the pain is worsened with breathing. He does have a dry cough. He denies any fever, nausea or vomiting. Review of Systems Review of Systems Constitutional: Denies fever or chills [] Respiratory: Reports dry cough without shortness of breath [] Cardiovascular: No additional information not addressed in HPI [] GI: Denies abdominal pain, nausea, vomiting, bloody stools or diarrhea [] Integument: Denies rash or skin lesions [] All other systems were reviewed and found to be within normal limits, except as documented in this note. Current Medications Current Medications Current Medications Medications (Trade) Dose Ordered Sig/Charla Start Time Stop Time Status Last Admin Dose Admin Fentanyl Citrate (Fentanyl 2ml Vial) 50 mcg 1X ONCE 06/25/18 01:00 06/25/18 01:01 DC 06/25/18 00:53 50 MCG Info (CONTRAST GIVEN -- Rx MONITORING) 1 each PRN DAILY PRN 06/25/18 00:15 06/27/18 00:14 Iohexol (Omnipaque 300 Mg/ml) 75 ml 1X ONCE 06/25/18 00:30 06/25/18 00:31 DC Ondansetron HCl (Zofran) 4 mg 1X ONCE 06/24/18 23:00 06/24/18 23:01 DC 06/24/18 22:45 4 MG Sodium Chloride 1,000 ml @ 100 mls/hr Q10H 06/24/18 23:00 06/25/18 08:59 06/24/18 22:44 100 MLS/HR Allergies Allergies Allergies Coded Allergies Type Severity Reaction Last Updated Verified No Known Drug Allergies 12/13/15 No Physical Exam Physical Exam Constitutional: Well developed, well nourished, no acute distress, non-toxic appearance. [] HENT: Normocephalic, atraumatic, bilateral external ears normal, oropharynx moist, no oral exudates, nose normal. [] Eyes: PERRLA, EOMI, conjunctiva normal, no discharge. [] Neck: Normal range of motion, no tenderness, supple. [] Cardiovascular: Regular rate and rhythm[] Lungs & Thorax: Bilateral breath sounds clear to auscultation [] Abdomen: Bowel sounds normal, soft, no tenderness. [] Skin: Warm, dry, no erythema, no rash. [] Extremities: No tenderness, no cyanosis, no clubbing, ROM intact, no edema. [] Neurologic: Alert and oriented X 3, normal motor function, normal sensory function, no focal deficits noted. [] Current Patient Data Vital Signs Vital Signs Date Time Temp Pulse Resp B/P (MAP) Pulse Ox O2 Delivery O2 Flow Rate FiO2 06/25/18 00:53 18 97 Room Air 06/25/18 00:15 69 109/52 (71) 06/24/18 22:10 98.7 98.7 Lab Values Laboratory Tests Test 06/24/18 22:20 White Blood Count 9.9 x10^3/uL (4.0-11.0) Red Blood Count 5.50 x10^6/uL (4.30-5.70) Hemoglobin 14.8 g/dL (13.0-17.5) Hematocrit 43.6 % (39.0-53.0) Mean Corpuscular Volume 79 fL (79-100) Mean Corpuscular Hemoglobin 27 pg (25-35) Mean Corpuscular Hemoglobin Concent 34 g/dL (31-37) Red Cell Distribution Width 13.6 % (11.5-14.5) Platelet Count 311 x10^3/uL (140-400) Neutrophils (%) (Auto) 64 % (31-73) Lymphocytes (%) (Auto) 23 % (24-48) L Monocytes (%) (Auto) 8 % (0-9) Eosinophils (%) (Auto) 5 % (0-3) H Basophils (%) (Auto) 1 % (0-3) Neutrophils # (Auto) 6.3 x10^3uL (1.8-7.7) Lymphocytes # (Auto) 2.2 x10^3/uL (1.0-4.8) Monocytes # (Auto) 0.8 x10^3/uL (0.0-1.1) Eosinophils # (Auto) 0.4 x10^3/uL (0.0-0.7) Basophils # (Auto) 0.1 x10^3/uL (0.0-0.2) D-Dimer (Cheryl) 0.70 ug/mlFEU (0.00-0.50) H Sodium Level 139 mmol/L (136-145) Potassium Level 3.5 mmol/L (3.5-5.1) Chloride Level 105 mmol/L (98-107) Carbon Dioxide Level 25 mmol/L (21-32) Anion Gap 9 (6-14) Blood Urea Nitrogen 12 mg/dL (8-26) Creatinine 1.3 mg/dL (0.7-1.3) Estimated GFR (Cockcroft-Gault) 69.0 BUN/Creatinine Ratio 9 (6-20) Glucose Level 105 mg/dL (70-99) H Calcium Level 8.9 mg/dL (8.5-10.1) Magnesium Level 2.2 mg/dL (1.8-2.4) Total Bilirubin 0.3 mg/dL (0.2-1.0) Aspartate Amino Transferase (AST) 62 U/L (15-37) H Alanine Aminotransferase (ALT) 86 U/L (16-63) H Alkaline Phosphatase 89 U/L (46-116) Troponin I Quantitative < 0.017 ng/mL (0.000-0.055) PG-Bsd-C-Type Natriuretic Peptide 45 pg/mL (0-124) Total Protein 8.3 g/dL (6.4-8.2) H Albumin 3.9 g/dL (3.4-5.0) Albumin/Globulin Ratio 0.9 (1.0-1.7) L Laboratory Tests 06/24/18 22:20 Laboratory Tests 06/24/18 22:20 EKG EKG [] Radiology/Procedures Radiology/Procedures [] Course & Med Decision Making Course & Med Decision Making Pertinent Labs and Imaging studies reviewed. (See chart for details) [] Dragon Disclaimer Dragon Disclaimer This electronic medical record was generated, in whole or in part, using a voice recognition dictation system. Departure Departure Impression: Primary Impression: Pleurisy Disposition: 01 HOME, SELF-CARE Condition: STABLE Referrals: NO PCP (PCP) Patient Instructions: Pleurisy Scripts Tramadol Hcl (TRAMADOL HCL) 50 Mg Tablet 50 MG PO Q6HRS PRN for PAIN, #12 TAB Prov: AURORA BERRY Jr. DO 06/25/18 Azithromycin (ZITHROMAX) 250 Mg Tablet 1 PKG PO UD, #6 TAB Prov: AURORA BERRY Jr. DO 06/25/18 AURORA BERRY Jr. DO Jun 25, 2018 03:30
[2018-06-25 03:34] LABS: BARBITURATES NEG (NEG); BENZODIAZEPINES NEG (NEG); CANNABINOIDS NEG (NEG); COCAINE NEG (NEG); METHADONE NEG (NEG); OPIATES NEG (NEG); PHENCYCLIDINE NEG (NEG); RBC,URINE OCC /HPF (0-2); WBC,URINE OCC /HPF (0-4)
[2018-06-25 03:35] LABS: AMORPHOUS SEDIMENT,UR PRESENT /HPF; BACTERIA,URINE 0 /HPF (0-FEW); SQUAMOUS EPITHELIAL CELL,UR OCC /LPF
[2018-06-25 03:36] LABS: AMPHETAMINE/METHAMPHETAMINE NEG (NEG)
--- NOTE | 2018-06-25 06:31 | EKG ---
[facility] [address] [place] [address] Test Date: 2018-06-24 Test Time: 22:17:48 Pat Name: SAHIL PRITCHETT Department: Room: Gender: M Chief Controller: : 1995 Requested By: AURORA BERRY Order Number: [id number] Reading MD: Measurements Intervals [place] Rate: 81 P: 103 [place]: 178 QRS: 44 QRSD: 88 T: 9 QT: 344 QTc: 404 Interpretive Statements SINUS RHYTHM NON SPECIFIC ST-T ABNORMALITY (ELEVATION) BORDERLINE ECG No previous ECG available for comparison
--- NOTE | 2018-06-25 07:51 | RAD ---
PORTABLE CHEST 1V Clinical indications: CHEST PAIN, shortness of breath. COMPARISON: June 17, 2018. Findings: No acute lung infiltrate or pleural effusion or pulmonary edema or lung mass or pneumothorax is seen. The heart size, pulmonary vasculature, mediastinum and both yasmine are unremarkable. Impression: No acute radiographic abnormality is seen. Electronically signed by: Spencer Marie MD (06/25/2018 7:47 AM) [facility]
== END 2018-06-25 03:40 | disposition home or self-care (01) ==
LOC: ER 22:08
DX: R09.1 Pleurisy (principal)
CPT/HCPCS: 36415; 71045; 71250; 80053; 80307; 81001; 83735; 83880; 84484; 85025; 85379; 93005; 96374; 96375; 96376; 99284; J2405; J3010; J7030